=== PATIENT | male | born 1970 | race Two or more races ===

== ENCOUNTER 2016-10-22 04:25 | Emergency (ER) | payer OTHER ==
[~2016-10-22] VITALS: Ht 167.6 cm; Wt 77.1 kg
[2016-10-22 04:46] VITALS: BP 136/94
[2016-10-22] MEDS ORDERED: KETOROLAC TROMETHAMINE INJ 60 MG/2 ML VIAL IM ONE ×2 (05:03→05:30)
[2016-10-22] MEDS ORDERED: CYCLOBENZAPRINE 10 MG TABLET ONE (05:03)
[2016-10-22] MEDS ORDERED: oxyCODONE/APAP (5/325 MG) 1 UDTAB TABLET ONE (05:03)
[2016-10-22] MEDS ORDERED: ONDANSETRON 4 MG TAB.RAPDIS ONE (05:10)
[2016-10-22] MEDS ORDERED: CYCLOBENZAPRINE 10 MG TABLET PO ONE (05:30)
[2016-10-22] MEDS ORDERED: ONDANSETRON 4 MG TAB.RAPDIS SL ONE (05:30)
[2016-10-22] MEDS ORDERED: oxyCODONE/APAP (5/325 MG) 1 UDTAB TABLET PO ONE (05:30)
== END 2016-10-22 06:29 | disposition home or self-care (01) ==
LOC: ER 04:28
DX: G89.29 Other chronic pain (principal); M54.5 Low back pain; M62.830 Muscle spasm of back
CPT/HCPCS: 96372; 99284; A4606; J1885; Q0162; Z7610

== ENCOUNTER 2018-01-30 11:04 | Emergency (ER) | payer BC, OTHER ==
[~2018-01-30] VITALS: Ht 167.6 cm; Wt 78.0 kg
[2018-01-30] MEDS ORDERED: ASPIRIN 325 MG TABLET PO ONE (11:30)
[2018-01-30] MEDS ORDERED: ASPIRIN 325 MG TABLET ONE (11:42)
[2018-01-30 11:47] LABS: BASOPHILS # (AUTO) 0.1 /CMM (0.0-0.2); BASOPHILS % (AUTO) 0.9 % (0.0-2.0); EOSINOPHILS % (AUTO) 0.8 % (0.0-6.0); HEMATOCRIT 42 % (39-51); LYMPHOCYTES # (AUTO) 1.4 /CMM (0.8-4.8); LYMPHOCYTES % (AUTO) 23.9 % (20.0-44.0); MEAN CORPUSCULAR HGB CONC 34 g/dl (31.0-36.0); MEAN CORPUSCULAR VOLUME 89 fL (80-96); MONOCYTES # (AUTO) 0.5 /CMM (0.1-1.30); MONOCYTES % (AUTO) 7.7 % (2.0-12.0); NEUTROPHILS % (AUTO) 66.7 % (43.0-81.0); PLATELET COUNT (AUTO) 304 /CMM (150-450); RED BLOOD CELL COUNT(AUTO) 4.72 MIL/uL (4.5-6.0)
[2018-01-30 12:04] LABS: CALCIUM, SERUM 8.4 mg/dL (8.5-10.1); CARBON DIOXIDE 31 mmol/L (21-32); CHLORIDE 106 mmol/L (98-107); CREATININE 0.8 mg/dL (0.6-1.3); GLUCOSE 116 mg/dL (74-106); POTASSIUM 3.7 mmol/L (3.5-5.1); SODIUM SERUM 141 mmol/L (136-145); TROPONIN I < 0.017 ng/mL (0.00-0.056); UREA NITROGEN, BLOOD 10 mg/dL (7-18)
--- NOTE | 2018-01-30 12:26 | NUR ---
Patient discharged to home in stable condition. Written and verbal after care instructions given. Patient verbalizes understanding of instruction. IV removed. Catheter intact and site benign. Pressure and 4x4 applied to site. No bleeding noted.
[2018-01-30 12:32] VITALS: BP 124/76
== END 2018-01-30 12:33 | disposition home or self-care (01) ==
LOC: ER 11:07
DX: R07.89 Other chest pain (principal); G89.29 Other chronic pain; Z98.890 Other specified postprocedural states; Z60.2 Problems related to living alone
CPT/HCPCS: 36415; 71045-TC; 80048-TC; 84484-TC; 85025-TC; A4606; Z7610